=== PATIENT | male | born 1955 | race Two or more races ===

== ENCOUNTER 2019-10-24 21:20 | Inpatient (IN) | payer SELFPAY ==
[~2019-10-24] VITALS: Ht 177.8 cm; Wt 76.7 kg
[2019-10-24] MEDS ORDERED: MORPHINE SULFATE 4 MG/ML CPJ (NOT FOR IM USE) IV STA (21:53)
[2019-10-24] MEDS ORDERED: ONDANSETRON HCL 4MG/2ML INJ IV STA (21:53)
[2019-10-24 22:41] LABS: CLARITY URINE CLEAR (CLEAR); COLOR URINE YELLOW (YELLOW); KETONES URINE 1+ (NEGATIVE); LEUKOCYTE ESTERASE URINE TRACE (NEGATIVE); NITRITE URINE NEGATIVE (NEGATIVE); OCCULT BLOOD URINE 2+ (NEGATIVE); PH URINE 6.5 (4.5-8.0); PROTEIN URINE TRACE (NEGATIVE); SPECIFIC GRAVITY URINE 1.031 (1.005-1.030); UROBILINOGEN URINE 0.2 E.U./dL (0.2-1.0)
[2019-10-24 22:50] LABS: BASOPHILS % 0.3 % (0.0-2.0); EOSINOPHILS % 0.3 % (0.0-5.0); HEMATOCRIT. 38.8 % (42.0-52.0); HEMOGLOBIN. 13.5 g/dL (14.0-18.0); LYMPHOCYTES % 15.1 % (20.0-50.0); MEAN CORPUSCULAR HEMOGLOBIN 31.4 pg (28.0-32.0); MEAN CORPUSCULAR VOLUME 89.9 fL (80.0-94.0); MEAN PLATELET VOLUME 7.5 fl (7.4-10.4); NEUTROPHILS % 70.3 % (40.0-76.0); PLATELET 196 x1000/uL (130-400); RED BLOOD CELL COUNT 4.31 mill/uL (4.7-6.1); RED CELL DISTRIBUTION WIDTH 13.1 % (11.6-14.6)
[2019-10-24 22:55] LABS: CHLORIDE 91 mEq/L (98-107)
[2019-10-24 23:05] LABS: INR 1.1; PROTHROMBIN TIME 11.9 sec (9.6-11.0)
[2019-10-24] MEDS ORDERED: SODIUM CHLORIDE 0.9% 1,000 ML IV NR (23:54)
[2019-10-25] MEDS ORDERED: CEFTRIAXONE 1 G PREMIX 50 ML IV NR
[2019-10-25] MEDS ORDERED: SODIUM CHLORIDE 0.9% 1,000 ML IV ONE (03:22)
[2019-10-25] MEDS: PIPERACILLIN/TAZ 3.375G PREMIX 50 ML IV NR ×2 (03:28→03:54)
[2019-10-25] MEDS ORDERED: INSULIN REGULAR (HUMULIN R) 300UNITS/3ML SUBCUT ONE (03:30)
[2019-10-25] MEDS ORDERED: ACETAMINOPHEN 325MG TABLET PO PRN (04:00)
[2019-10-25] MEDS ORDERED: GUAIFENESIN 200MG/10ML SUGAR FREE UDC PO PRN (04:00)
[2019-10-25] MEDS ORDERED: DOCUSATE SODIUM 100MG CAPSULE PO PRN (04:00)
[2019-10-25] MEDS ORDERED: HYDROCODONE/ACETAMINOPHEN 5/325MG TABLET PO PRN (04:00)
[2019-10-25] MEDS ORDERED: MAGNESIUM/ALUMINUM HYDROXIDE/SIMETHICONE 30ML UDC PO PRN (04:00)
[2019-10-25] MEDS ORDERED: ONDANSETRON HCL 4MG/2ML INJ IV PRN (04:00)
[2019-10-25] MEDS ORDERED: CLONIDINE 0.1MG TABLET PO PRN (04:00)
[2019-10-25 04:37] VITALS: BP 125/65
[2019-10-25] MEDS ORDERED: DEXTROSE 50% WATER 50ML SYRINGE IV PRN (05:15)
[2019-10-25] MEDS: INSULIN LISPRO 100 UNITS/ML SUBCUT SCH ×4 (06:37→21:22)
[2019-10-25] MEDS: BLOOD SUGAR DIAGNOSTIC STRIP TEST SCH ×4 (06:38→20:09)
[2019-10-25] MEDS: SODIUM CHLORIDE 0.9% 1,000 ML IV SCH (06:39)
[2019-10-25 08:00] VITALS: BP 101/46
[2019-10-25] MEDS ORDERED: LEVOFLOXACIN 500MG PREMIX 100 ML IV SCH (09:00)
[2019-10-25] MEDS: AMLODIPINE 10MG TABLET PO SCH (10:03)
[2019-10-25 12:00] VITALS: BP 113/72
[2019-10-25 16:00] VITALS: BP 113/59
[2019-10-25 20:00] VITALS: BP 96/52
[2019-10-25] MEDS: INSULIN GLARGINE UD 100 UNITS/ML SYR SUBCUT SCH (21:22)
[2019-10-26] VITALS: BP 105/51
[2019-10-26 04:00] VITALS: BP 124/82
[2019-10-26] MEDS: SODIUM CHLORIDE 0.9% 1,000 ML IV SCH (07:10)
[2019-10-26 07:15] LABS: CHLORIDE 105 mEq/L (98-107); HEMATOCRIT. 37.8 % (42.0-52.0); MEAN CORPUSCULAR HEMOGLOBIN 31.1 pg (28.0-32.0); MEAN CORPUSCULAR VOLUME 90.5 fL (80.0-94.0); MEAN PLATELET VOLUME 7.6 fl (7.4-10.4); PLATELET 171 x1000/uL (130-400); RED BLOOD CELL COUNT 4.18 mill/uL (4.7-6.1); RED CELL DISTRIBUTION WIDTH 13.1 % (11.6-14.6)
[2019-10-26] MEDS: BLOOD SUGAR DIAGNOSTIC STRIP TEST SCH ×4 (07:43→21:17)
[2019-10-26 08:00] VITALS: BP 100/42
[2019-10-26] MEDS: INSULIN LISPRO 100 UNITS/ML SUBCUT SCH ×4 (08:30→21:17)
[2019-10-26] MEDS: AMLODIPINE 10MG TABLET PO SCH (08:40)
[2019-10-26 09:43] LABS: PLATELET ESTIMATE NORMAL
[2019-10-26] MEDS ORDERED: LEVOFLOXACIN 500MG PREMIX 100 ML IV SCH (10:00)
[2019-10-26] MEDS: INSULIN GLARGINE UD 100 UNITS/ML SYR SUBCUT SCH (10:57)
[2019-10-26 12:00] VITALS: BP 107/63
[2019-10-26 20:00] VITALS: BP 105/56
[2019-10-26] MEDS ORDERED: INSULIN GLARGINE UD 100 UNITS/ML SYR SUBCUT SCH (22:00)
[2019-10-27] VITALS: BP 117/63
[2019-10-27 04:00] VITALS: BP 124/64
[2019-10-27] MEDS: BLOOD SUGAR DIAGNOSTIC STRIP TEST SCH (07:00)
[2019-10-27 08:00] VITALS: BP 109/65
[2019-10-27] MEDS: INSULIN LISPRO 100 UNITS/ML SUBCUT SCH (08:46)
[2019-10-27] MEDS: AMLODIPINE 10MG TABLET PO SCH (08:47)
[2019-10-27 08:55] VITALS: BP 109/65
== END 2019-10-27 09:25 | disposition home or self-care (01) | DRG 463 ==
LOC: ER 21:20 → 5WST 10-25 02:45 → EDBEDREQTM 10-25 02:46 → EDBEDREQ 10-25 02:46 → ENRESERV 10-25 03:11 → 6EST 10-25 07:46
PROVIDERS: ADMIT Hospitalist; ATTEND Hospitalist
DX: N13.6 Pyonephrosis (principal); E11.65 Type 2 diabetes mellitus with hyperglycemia; Z96.649 Presence of unspecified artificial hip joint
CPT/HCPCS: 36415; 74176; 80053; 81003; 82962; 83036; 85025; 93005; 93970; 99291; J0696; J1815; J1956; J2270; J2405; J2543; J7030